=== PATIENT | female | born 1960 | race Caucasian/White ===

== ENCOUNTER 2018-07-19 13:28 | Observation (INO) | payer MEDICARE, OTHER ==
[~2018-07-19] VITALS: Ht 165.1 cm; Wt 77.1 kg
[2018-07-19 13:57] LABS: BASOPHILS ABSOLUTE AUTO 0.08 K/mm3 (0.00-0.23); BASOPHILS PERCENT AUTO 1 % (0-2); EOSINOPHILS ABSOLUTE AUTO 0.04 K/mm3 (0.00-0.68); EOSINOPHILS PERCENT AUTO 0 % (0-6); Hematocrit 38.8 % (33.0-51.0); Hemoglobin 13.1 g/dL (11.5-16.0); IMMATURE GRAN ABSOLUTE AUTO 0.03 K/mm3 (0.00-0.10); IMMATURE GRAN PERCENT AUTO 0 % (0-1); LYMPHOCYTES ABSOLUTE AUTO 1.69 K/mm3 (0.84-5.20); LYMPHOCYTES PERCENT AUTO 13 % (21-46); MONOCYTES ABSOLUTE AUTO 0.81 K/mm3 (0.16-1.47); MONOCYTES PERCENT AUTO 6 % (4-13); Mean Corpuscular HGB 33.8 pg (26.0-34.0); Mean Corpuscular HGB Conc 33.8 g/dL (31.5-36.5); Mean Corpuscular Volume 100 fL (80-100); Mean Platelet Volume 9.3 fL (9.1-12.4); NEUTROPHILS PERCENT AUTO 80 % (41-73); Platelet Count 335 K/mm3 (150-400); RDW Coefficient Variation 12.8 % (11.7-14.2); RDW Standard Deviation 47.3 fL (35.1-46.3); Red Blood Cell Count 3.88 M/mm3 (3.80-5.20); White Blood Cell Count 13.35 K/mm3 (4.00-11.30)
[2018-07-19 14:19] LABS: Alanine Aminotransfer (ALT/SGP 37 U/L (12-78); Alk Phos 91 U/L (50-136); Anion Gap 12 mmol/L (6-16); Aspartate Aminotrans (AST/SGOT 37 U/L (12-37); Bilirubin, Total 0.7 mg/dL (0.1-1.0); Blood Urea Nitrogen 13 mg/dL (8-24); Bun/Creatinine Ratio 19.1 (12.0-20.0); CO2, Blood 26 mmol/L (21-32); Calcium, Blood 9.5 mg/dL (8.5-10.1); Chloride, Blood 101 mmol/L (98-108); Creatinine, Blood 0.68 mg/dL (0.40-1.00); Globulin, Blood 3.9 g/dL (2.2-4.0); Glomerular Filtration Rate >60 (60-); Glucose, Blood 125 mg/dL (70-99); Potassium, Blood 3.1 mmol/L (3.5-5.5); Sodium, Blood 139 mmol/L (136-145); Total Protein, Blood 7.9 g/dL (6.4-8.2)
[2018-07-19] MEDS ORDERED: ATOR10 PO (16:07)
[2018-07-19] MEDS ORDERED: BENZ100A PO (16:08)
[2018-07-19] MEDS ORDERED: BUDE6HFA INH (16:08)
[2018-07-19] MEDS ORDERED: CALCA400CH PO (16:08)
[2018-07-19] MEDS ORDERED: LISI5 PO (16:09)
[2018-07-19] MEDS ORDERED: NAPR220 PO (16:09)
[2018-07-19] MEDS ORDERED: TIOT18 INH (16:10)
[2018-07-19] MEDS ORDERED: PRAZ2 PO (16:10)
[2018-07-19] MEDS ORDERED: LEVSOD100 PO (21:42)
[2018-07-19] MEDS ORDERED: ATOR40TA PO (21:43)
[2018-07-19] MEDS ORDERED: DULO60 PO (21:43)
[2018-07-20] MEDS ORDERED: HYDR1TAB94 PO (12:56)
== END 2018-07-20 13:51 | disposition home or self-care (01) ==
LOC: ER 13:28 → SURS 13:29 → ER 17:13 → SURS 17:13
PROVIDERS: Emergency Medicine; Surgery
PROC: 0DTJ4ZZ Resection of Appendix, Percutaneous Endoscopic Approach (ICD-10-PCS; principal; 2018-07-19 18:00)
DX: K35.80 Unspecified acute appendicitis (principal); Z88.1 Allergy status to other antibiotic agents
CPT/HCPCS: 74177; 80053; 83690; 85025; 96361; 96365; 96375; 96376; 99285-25; G0378; J0295; J1100; J1170; J1885; J2250; J2370; J2405; J2710; J3010; J7030; J7120; Q9967

== ENCOUNTER 2018-08-10 08:47 | Emergency (ER) | payer MEDICARE, OTHER ==
[~2018-08-10 08:47] MED LIST: ATOR10 PO; ATOR40TA PO; BENZ100A PO; BUDE6HFA INH; CALCA400CH PO; DULO60 PO; HYDR1TAB94 PO; LEVSOD100 PO; LISI5 PO; NAPR220 PO; PRAZ2 PO; TIOT18 INH
== END 2018-08-10 10:13 | disposition left against medical advice (07) ==
LOC: ER 08:47
DX: Z53.21 Procedure and treatment not carried out due to patient leaving prior to being seen by health care provider (principal)

== ENCOUNTER 2018-08-13 08:41 | Emergency (ER) | payer MEDICARE, OTHER ==
[~2018-08-13] VITALS: Ht 167.6 cm; Wt 77.1 kg
[2018-08-13 10:28] LABS: BASOPHILS ABSOLUTE AUTO 0.06 K/mm3 (0.00-0.23); BASOPHILS PERCENT AUTO 1 % (0-2); EOSINOPHILS ABSOLUTE AUTO 0.01 K/mm3 (0.00-0.68); EOSINOPHILS PERCENT AUTO 0 % (0-6); Hematocrit 38.4 % (33.0-51.0); Hemoglobin 12.6 g/dL (11.5-16.0); IMMATURE GRAN ABSOLUTE AUTO 0.05 K/mm3 (0.00-0.10); IMMATURE GRAN PERCENT AUTO 0 % (0-1); LYMPHOCYTES ABSOLUTE AUTO 1.05 K/mm3 (0.84-5.20); LYMPHOCYTES PERCENT AUTO 8 % (21-46); MONOCYTES ABSOLUTE AUTO 0.36 K/mm3 (0.16-1.47); MONOCYTES PERCENT AUTO 3 % (4-13); Mean Corpuscular HGB 32.6 pg (26.0-34.0); Mean Corpuscular HGB Conc 32.8 g/dL (31.5-36.5); Mean Corpuscular Volume 99 fL (80-100); Mean Platelet Volume 9.7 fL (9.1-12.4); NEUTROPHILS ABSOLUTE AUTO 11.35 K/mm3 (1.96-9.15); NEUTROPHILS PERCENT AUTO 88 % (41-73); Platelet Count 350 K/mm3 (150-400); RDW Coefficient Variation 12.7 % (11.7-14.2); RDW Standard Deviation 45.9 fL (35.1-46.3); Red Blood Cell Count 3.87 M/mm3 (3.80-5.20); White Blood Cell Count 12.88 K/mm3 (4.00-11.30)
[2018-08-13 10:39] LABS: C-REACTIVE PROTEIN, EXT RANGE <0.290 mg/dL (0.000-0.300)
[2018-08-13 10:42] LABS: Alanine Aminotransfer (ALT/SGP 33 U/L (12-78); Albumin, Blood 3.8 g/dL (3.4-5.0); Albumin/Globulin Ratio 0.9 (0.8-1.8); Alk Phos 95 U/L (50-136); Anion Gap 6 mmol/L (6-16); Aspartate Aminotrans (AST/SGOT 19 U/L (12-37); Bilirubin, Total 0.9 mg/dL (0.1-1.0); Blood Urea Nitrogen 14 mg/dL (8-24); Bun/Creatinine Ratio 22.3 (12.0-20.0); CO2, Blood 27 mmol/L (21-32); Calcium, Blood 9.1 mg/dL (8.5-10.1); Chloride, Blood 105 mmol/L (98-108); Creatinine, Blood 0.63 mg/dL (0.40-1.00); Globulin, Blood 4.1 g/dL (2.2-4.0); Glomerular Filtration Rate >60 (60-); Glucose, Blood 108 mg/dL (70-99); Potassium, Blood 3.8 mmol/L (3.5-5.5); Sodium, Blood 138 mmol/L (136-145); Total Protein, Blood 7.9 g/dL (6.4-8.2); Troponin I <0.015 ng/mL (0.000-0.040)
[2018-08-13] MEDS ORDERED: Percocet 5-3251 EACH PO (11:15)
[2018-08-13] MEDS ORDERED: Prednisone20 MG PO (11:15)
== END 2018-08-13 11:33 | disposition home or self-care (01) ==
LOC: ER 08:41
PROVIDERS: Internal Medicine
DX: M18.9 Osteoarthritis of first carpometacarpal joint, unspecified (principal); Z88.2 Allergy status to sulfonamides; Z88.1 Allergy status to other antibiotic agents; Z79.899 Other long term (current) drug therapy; E78.5 Hyperlipidemia, unspecified; Z87.891 Personal history of nicotine dependence
CPT/HCPCS: 29125; 36415; 80053; 84484; 85025; 85379; 85651; 86140; 93005; 93010; 96374; 96375; 99283-25; J1885; J2405; J3010; L3917

== ENCOUNTER 2019-01-26 08:35 | Day surgery (SDC) | payer MEDICARE, OTHER ==
[~2019-01-26] VITALS: Ht 167.6 cm; Wt 82.2 kg
[~2019-01-26 08:35] MED LIST changes: +COQ1050 MG PO; +Percocet 5-3251 EACH PO; +Prednisone20 MG PO; +VITAMIN D-32000 UNIT PO; +Vitamin B Comple1 EA PO
--- NOTE | 2019-01-26 09:18 | NUR ---
History, Chart, Medications and Allergies reviewed before start of procedure. Lungs clear T/O to Auscultation. Patient confirms NPO status and agrees with scheduled surgery. Patient reports completing Chlorhexadine shower X2 prior to admission to hospital.
--- NOTE | 2019-01-26 13:22 | NUR ---
RECEIVED REPORT FROM DR HULL. PT IS AWAKE AND COUGHING. SAT PT UP. VSS. ABD X3 SX SITES CDI. PT TURNED ON SIDE AND STARTED CRYING. RN GAVE PT TISSUES. PT SOMEWHAT STILL SLEEPY WAKING UP. WILL GIVE PT TIME TO WAKE.
--- NOTE | 2019-01-26 13:31 | NUR ---
PT STATES SHE DOES NOT KNOW WHY SHE IS CRYING. PT TURNED ONTO BACK. WARM BLANKETS PLACED. RN SPOKE TO PT ABOUT HOW PROCEDURE WENT. PT AWARE, LOOKS SAD "I DONT KNOW WHY" STATES PT. VSS. PT WANTS TO JUST REST. DID NOT WANT ANY PAIN MEDS AT THIS TIME FOR SORE ABD.
--- NOTE | 2019-01-26 13:53 | NUR ---
PT CRYING WHEN BROUGHT TO STEP. SHE STATED THAT DHE HAS NO IDEA WHY SHE IS CRYING. PROVIDED EMOTIONAL SUPPORT. PT TALKING ABOUT LOSING HER AND HER DAUGHTER BEING IN COLLEGE IN [facility]. INCISIONS X3 REMAIN CDI WITH VERENICE FALL IN PLACE.
--- NOTE | 2019-01-26 14:51 | NUR ---
PT INCISIONS REMAINED INTACT WITH STERI STRIPS IN PLACE AND NO BLEEDING. PT TEARS HAVE STOPPED, CHEERFUL, Patient up to Ambulate independently. Gait steady. Patient States Post-Procedure ride home has been arranged. Discharge instructions reviewed with patient. Patient verbalizes understanding. Copy given to patient to take home. Discharged via wheelchair to private car for ride home. ALL BELONINGS RETURNED TO PATIENT.
== END 2019-01-26 23:18 | disposition home or self-care (01) ==
LOC: ORSCMMR 08:35 → ORD 11:45 → ORSCMMR 23:18
PROVIDERS: Surgery
PROC: 8E0W4CZ Robotic Assisted Procedure of Trunk Region, Percutaneous Endoscopic Approach (ICD-10-PCS; principal; 2019-01-26 11:45)
PROC: 0WUF4JZ Supplement Abdominal Wall with Synthetic Substitute, Percutaneous Endoscopic Approach (ICD-10-PCS; principal; 2019-01-26 11:45)
DX: K43.2 Incisional hernia without obstruction or gangrene (principal); E78.00 Pure hypercholesterolemia, unspecified; F32.9 Major depressive disorder, single episode, unspecified; Z79.899 Other long term (current) drug therapy
CPT/HCPCS: 49654; S2900; A9270-GY; C1781; J0690; J1100; J1885; J2250; J2405; J2704; J3010; J7120

== ENCOUNTER 2019-05-07 07:50 | Emergency (ER) | payer MEDICARE, OTHER ==
[~2019-05-07] VITALS: Ht 167.6 cm; Wt 77.1 kg
[2019-05-07 08:17] LABS: Source, Urine Clean Catch
[2019-05-07 08:23] LABS: Bilirubin, Urine Neg (Neg); Blood, Urine 2+ (Neg); Glucose Qualitative, Urine Neg (Neg); Ketones, Urine Neg (Neg); Leukocyte Esterase, Urine Neg (Neg); Nitrite, Urine Neg (Neg); Protein, Urine Neg (Neg); Urobilinogen, Urine NORM (Normal)
[2019-05-07 08:36] LABS: Appearance, Urine Clear (Clear); Color, Urine Yellow (P-Yellow); Red Blood Cells, Urine 0-2 /hpf (0-2); Squamous Epithelial Cells Few /hpf (Few); White Blood Cells, Urine 0-2 /hpf (0-5)
[2019-05-07 08:37] LABS: Bacteria Mod /hpf; Yeast/Fungi Urine Few /hpf
[2019-05-07 09:46] LABS: BASOPHILS ABSOLUTE AUTO 0.05 K/mm3 (0.00-0.23); BASOPHILS PERCENT AUTO 1 % (0-2); EOSINOPHILS ABSOLUTE AUTO 0.03 K/mm3 (0.00-0.68); EOSINOPHILS PERCENT AUTO 0 % (0-6); Hematocrit 37.8 % (33.0-51.0); Hemoglobin 12.7 g/dL (11.5-16.0); IMMATURE GRAN ABSOLUTE AUTO 0.02 K/mm3 (0.00-0.10); IMMATURE GRAN PERCENT AUTO 0 % (0-1); LYMPHOCYTES PERCENT AUTO 16 % (21-46); MONOCYTES PERCENT AUTO 7 % (4-13); Mean Corpuscular HGB 33.2 pg (26.0-34.0); Mean Corpuscular HGB Conc 33.6 g/dL (31.5-36.5); Mean Corpuscular Volume 99 fL (80-100); Mean Platelet Volume 9.4 fL (9.1-12.4); NEUTROPHILS ABSOLUTE AUTO 6.81 K/mm3 (1.96-9.15); NEUTROPHILS PERCENT AUTO 77 % (41-73); Platelet Count 280 K/mm3 (150-400); RDW Coefficient Variation 13.2 % (11.7-14.2); RDW Standard Deviation 47.6 fL (35.1-46.3); Red Blood Cell Count 3.83 M/mm3 (3.80-5.20); White Blood Cell Count 8.91 K/mm3 (4.00-11.30)
[2019-05-07 10:07] LABS: Alanine Aminotransfer (ALT/SGP 35 U/L (12-78); Albumin, Blood 3.8 g/dL (3.4-5.0); Alk Phos 84 U/L (50-136); Anion Gap 6 mmol/L (6-16); Aspartate Aminotrans (AST/SGOT 27 U/L (12-37); Bilirubin, Total 1.1 mg/dL (0.1-1.0); Blood Urea Nitrogen 13 mg/dL (8-24); Bun/Creatinine Ratio 20.6 (12.0-20.0); CO2, Blood 27 mmol/L (21-32); Chloride, Blood 106 mmol/L (98-108); Creatinine, Blood 0.63 mg/dL (0.40-1.00); Globulin, Blood 3.8 g/dL (2.2-4.0); Glomerular Filtration Rate >60 (60-); Glucose, Blood 106 mg/dL (70-99); Potassium, Blood 3.7 mmol/L (3.5-5.5); Sodium, Blood 139 mmol/L (136-145); Total Protein, Blood 7.6 g/dL (6.4-8.2)
[2019-05-07] MEDS ORDERED: Norco 5-325 Ta1 EACH PO (11:15)
[2019-05-07] MEDS ORDERED: Robaxin-750750 MG PO (11:15)
== END 2019-05-07 11:27 | disposition home or self-care (01) ==
LOC: ER 07:50
PROVIDERS: Emergency Medicine; Physician Assistant
DX: M54.40 Lumbago with sciatica, unspecified side (principal); Z87.891 Personal history of nicotine dependence; Z88.2 Allergy status to sulfonamides; Z88.1 Allergy status to other antibiotic agents; Z79.899 Other long term (current) drug therapy
CPT/HCPCS: 36415; 74176; 80053; 81001; 83690; 85025; 96374; 99284-25; A9270-GY; J1885

== ENCOUNTER → 2021-06-24 | Outpatient (CLI) | payer MEDICARE, OTHER ==
[~2021-06-24] MED LIST changes: +Norco 5-325 Ta1 EACH PO; +Robaxin-750750 MG PO
[2021-06-26 03:09] LABS: CHLAMYDIA TRACHOMATIS, NAA Negative (Negative)
[2021-06-29 19:10] LABS: HSV-2 IGG SUPPLEMENTAL TEST Positive (Negative)
== END ==
LOC: LAB SHORT 12:15
PROVIDERS: Family Medicine
DX: L98.9 Disorder of the skin and subcutaneous tissue, unspecified (principal); E89.0 Postprocedural hypothyroidism; Z88.2 Allergy status to sulfonamides; Z88.1 Allergy status to other antibiotic agents
CPT/HCPCS: 84443; 86592; 86695; 86696; 87491; 87591

== ENCOUNTER → 2021-07-17 | Outpatient (CLI) | payer MEDICARE, OTHER | LOC: LAB SHORT 16:48 → LAB 16:48 | DX: L57.0 Actinic keratosis (principal); L02.02 Furuncle of face; L08.9 Local infection of the skin and subcutaneous tissue, unspecified; L57.8 Other skin changes due to chronic exposure to nonionizing radiation; L81.4 Other melanin hyperpigmentation; R21 Rash and other nonspecific skin eruption; Z71.89 Other specified counseling | CPT/HCPCS: 87070; 87077; 87186; 87205 ==

== ENCOUNTER → 2023-01-13 | Outpatient (CLI) | payer MEDICARE, OTHER | END | disposition home or self-care (01) | LOC: LAB 10:25 → LAB SHORT 10:25 | DX: E89.0 Postprocedural hypothyroidism (principal) | CPT/HCPCS: 84443 ==

== ENCOUNTER 2023-09-15 11:54 | Emergency (ER) | payer MEDICARE, OTHER ==
[~2023-09-15] VITALS: Ht 170.2 cm; Wt 68.0 kg
[2023-09-15 12:21] LABS: BASOPHILS ABSOLUTE AUTO 0.08 K/mm3 (0.00-0.23); BASOPHILS PERCENT AUTO 1 % (0-2); EOSINOPHILS ABSOLUTE AUTO 0.12 K/mm3 (0.00-0.68); EOSINOPHILS PERCENT AUTO 2 % (0-6); Hematocrit 38.3 % (33.0-51.0); IMMATURE GRAN ABSOLUTE AUTO 0.01 K/mm3 (0.00-0.10); IMMATURE GRAN PERCENT AUTO 0 % (0-1); LYMPHOCYTES PERCENT AUTO 30 % (21-46); MONOCYTES ABSOLUTE AUTO 0.46 K/mm3 (0.16-1.47); MONOCYTES PERCENT AUTO 7 % (4-13); Mean Corpuscular HGB 31.1 pg (26.0-34.0); Mean Corpuscular HGB Conc 33.9 g/dL (31.5-36.5); Mean Corpuscular Volume 92 fL (80-100); Mean Platelet Volume 9.1 fL (9.1-12.4); NEUTROPHILS ABSOLUTE AUTO 4.31 K/mm3 (1.96-9.15); NEUTROPHILS PERCENT AUTO 61 % (41-73); Platelet Count 301 K/mm3 (150-400); RDW Coefficient Variation 12.3 % (11.7-14.2); RDW Standard Deviation 40.9 fL (35.1-46.3); Red Blood Cell Count 4.18 M/mm3 (3.80-5.20); White Blood Cell Count 7.08 K/mm3 (4.00-11.30)
[2023-09-15 12:44] LABS: Albumin, Blood 3.8 g/dL (3.4-5.0); Albumin/Globulin Ratio 1.1 (0.8-1.8); Bilirubin, Total 0.7 mg/dL (0.1-1.0); Calcium, Blood 8.9 mg/dL (8.5-10.1); Creatinine, Blood 0.77 mg/dL (0.40-1.00); Globulin, Blood 3.6 g/dL (2.2-4.0); Total Protein, Blood 7.4 g/dL (6.4-8.2)
[2023-09-15 14:58] LABS: Source, Urine Clean Catch
[2023-09-15 15:09] LABS: Appearance, Urine Clear (Clear); Bilirubin, Urine Neg (Neg); Blood, Urine Neg (Neg); Color, Urine Yellow (P-Yellow); Glucose Qualitative, Urine Neg (Neg); Ketones, Urine Neg (Neg); Leukocyte Esterase, Urine Neg (Neg); Nitrite, Urine Neg (Neg); Protein, Urine Neg (Neg); Specific Gravity, Urine 1.005 (1.003-1.022); Urobilinogen, Urine NORM (Normal)
[2023-09-15 15:45] VITALS: BP 122/84
== END 2023-09-15 15:46 | disposition home or self-care (01) ==
LOC: ER 11:54
PROVIDERS: Emergency Medicine; Physician Assistant
DX: R19.5 Other fecal abnormalities (principal); R10.11 Right upper quadrant pain; M06.9 Rheumatoid arthritis, unspecified; Z79.899 Other long term (current) drug therapy; Z88.2 Allergy status to sulfonamides; Z88.1 Allergy status to other antibiotic agents
CPT/HCPCS: 76705; 80053; 81003; 85025; 99284-25

== ENCOUNTER → 2023-11-10 | Outpatient (CLI) | payer MEDICARE, OTHER ==
[2023-11-16 15:46] LABS: HPV HIGH RISK BY TMA Detected; HPV SOURCE Cervical
[2023-11-17 22:07] LABS: HPV GENOTYPE 16 BY TMA Not Detected; HPV GENOTYPE 18/45 BY TMA Not Detected; HPVG SOURCE Cervical
== END | disposition home or self-care (01) ==
LOC: LAB SHORT 11:38 → LAB 11:38
PROVIDERS: Registered Nurse Community Health
DX: Z12.4 Encounter for screening for malignant neoplasm of cervix (principal)
CPT/HCPCS: 87624; 87625; G0123

== ENCOUNTER → 2024-05-17 | Outpatient (CLI) | payer MEDICARE, OTHER ==
[~2024-05-17] MED LIST changes: +Nitrostat0.3 MG SL
== END ==
LOC: LAB 12:43 → LAB SHORT 12:43
DX: N39.41 Urge incontinence (principal)
CPT/HCPCS: 87086

== ENCOUNTER 2024-05-31 06:46 | Day surgery (SDC) | payer MEDICARE, OTHER ==
[~2024-05-31] VITALS: Ht 170.2 cm; Wt 70.5 kg
[2024-05-31] MEDS ORDERED: ACYC200 PO (07:08)
[2024-05-31] MEDS ORDERED: propofoL 50 ML IV ONE (07:23)
[2024-05-31] MEDS ORDERED: Lactated Ringer's 1,000 ML IV ONE ×2 (07:23→07:58)
[2024-05-31 09:18] VITALS: BP 101/54
== END 2024-05-31 09:24 | disposition home or self-care (01) ==
LOC: ORSCSDS 06:46
PROVIDERS: Specialist
PROC: 0D758ZZ Dilation of Esophagus, Via Natural or Artificial Opening Endoscopic (ICD-10-PCS; principal; 2024-05-31 08:00)
PROC: 0DB98ZX Excision of Duodenum, Via Natural or Artificial Opening Endoscopic, Diagnostic (ICD-10-PCS; principal; 2024-05-31 08:00)
PROC: 0DB68ZX Excision of Stomach, Via Natural or Artificial Opening Endoscopic, Diagnostic (ICD-10-PCS; principal; 2024-05-31 08:00)
PROC: 0DB58ZX Excision of Esophagus, Via Natural or Artificial Opening Endoscopic, Diagnostic (ICD-10-PCS; principal; 2024-05-31 08:00)
PROC: 0DJD8ZZ Inspection of Lower Intestinal Tract, Via Natural or Artificial Opening Endoscopic (ICD-10-PCS; principal; 2024-05-31 08:00)
DX: R19.4 Change in bowel habit (principal); K62.89 Other specified diseases of anus and rectum; K57.30 Diverticulosis of large intestine without perforation or abscess without bleeding; Z80.0 Family history of malignant neoplasm of digestive organs; R13.19 Other dysphagia; R11.0 Nausea; R14.0 Abdominal distension (gaseous); R63.4 Abnormal weight loss; Z86.0101 Personal history of adenomatous and serrated colon polyps; Z86.0102 Personal history of hyperplastic colon polyps; Z85.850 Personal history of malignant neoplasm of thyroid; Z79.899 Other long term (current) drug therapy
CPT/HCPCS: 88305; 88342; C1769; J2704; J7120

== ENCOUNTER → 2024-07-28 | Outpatient (CLI) | payer MEDICARE, OTHER ==
[~2024-07-28] MED LIST changes: +ACYC200 PO
[2024-07-28 12:08] LABS: BASOPHILS ABSOLUTE AUTO 0.06 K/mm3 (0.00-0.23); BASOPHILS PERCENT AUTO 1 % (0-2); EOSINOPHILS ABSOLUTE AUTO 0.04 K/mm3 (0.00-0.68); EOSINOPHILS PERCENT AUTO 1 % (0-6); Hematocrit 37.6 % (33.0-51.0); Hemoglobin 12.8 g/dL (11.5-16.0); IMMATURE GRAN ABSOLUTE AUTO 0.01 K/mm3 (0.00-0.10); IMMATURE GRAN PERCENT AUTO 0 % (0-1); LYMPHOCYTES ABSOLUTE AUTO 1.53 K/mm3 (0.84-5.20); LYMPHOCYTES PERCENT AUTO 21 % (21-46); MONOCYTES ABSOLUTE AUTO 0.43 K/mm3 (0.16-1.47); MONOCYTES PERCENT AUTO 6 % (4-13); Mean Corpuscular HGB 32.3 pg (26.0-34.0); Mean Corpuscular Volume 95 fL (80-100); Mean Platelet Volume 8.8 fL (9.1-12.4); NEUTROPHILS ABSOLUTE AUTO 5.28 K/mm3 (1.96-9.15); NEUTROPHILS PERCENT AUTO 72 % (41-73); Platelet Count 297 K/mm3 (150-400); RDW Coefficient Variation 12.7 % (11.7-14.2); RDW Standard Deviation 44.3 fL (35.1-46.3); Red Blood Cell Count 3.96 M/mm3 (3.80-5.20); White Blood Cell Count 7.35 K/mm3 (4.00-11.30)
[2024-07-28 12:15] LABS: Bun/Creatinine Ratio 14.5 (12.0-20.0); Creatinine, Blood 0.76 mg/dL (0.40-1.00); Potassium, Blood 3.8 mmol/L (3.5-5.5)
== END ==
LOC: LAB SHORT 12:05 → LAB 12:05
PROVIDERS: Physician Assistant
DX: L08.9 Local infection of the skin and subcutaneous tissue, unspecified (principal); B95.8 Unspecified staphylococcus as the cause of diseases classified elsewhere
CPT/HCPCS: 80048; 85025

== ENCOUNTER 2024-08-24 09:26 | Observation (INO) | payer MEDICARE, OTHER ==
[~2024-08-24] VITALS: Ht 170.2 cm; Wt 70.3 kg
[2024-08-24 11:26] LABS: BASOPHILS ABSOLUTE AUTO 0.09 K/mm3 (0.00-0.23); BASOPHILS PERCENT AUTO 1 % (0-2); EOSINOPHILS ABSOLUTE AUTO 0.07 K/mm3 (0.00-0.68); EOSINOPHILS PERCENT AUTO 1 % (0-6); Hematocrit 38.3 % (33.0-51.0); Hemoglobin 13.2 g/dL (11.5-16.0); IMMATURE GRAN ABSOLUTE AUTO 0.01 K/mm3 (0.00-0.10); IMMATURE GRAN PERCENT AUTO 0 % (0-1); LYMPHOCYTES ABSOLUTE AUTO 2.11 K/mm3 (0.84-5.20); LYMPHOCYTES PERCENT AUTO 26 % (21-46); MONOCYTES PERCENT AUTO 7 % (4-13); Mean Corpuscular HGB 32.5 pg (26.0-34.0); Mean Corpuscular HGB Conc 34.5 g/dL (31.5-36.5); Mean Corpuscular Volume 94 fL (80-100); Mean Platelet Volume 8.9 fL (9.1-12.4); NEUTROPHILS ABSOLUTE AUTO 5.28 K/mm3 (1.96-9.15); NEUTROPHILS PERCENT AUTO 65 % (41-73); Platelet Count 303 K/mm3 (150-400); RDW Coefficient Variation 12.4 % (11.7-14.2); RDW Standard Deviation 43.1 fL (35.1-46.3); Red Blood Cell Count 4.06 M/mm3 (3.80-5.20); White Blood Cell Count 8.16 K/mm3 (4.00-11.30)
[2024-08-24 12:01] VITALS: BP 122/81
[2024-08-24 12:07] LABS: Albumin, Blood 4.1 g/dL (3.4-5.0); Albumin/Globulin Ratio 1.1 (0.8-1.8); Bilirubin, Total 0.7 mg/dL (0.1-1.0); Bun/Creatinine Ratio 16.2 (12.0-20.0); Calcium, Blood 9.4 mg/dL (8.5-10.1); Creatinine, Blood 0.56 mg/dL (0.40-1.00); Globulin, Blood 3.8 g/dL (2.2-4.0); Potassium, Blood 4.5 mmol/L (3.5-5.5); Total Protein, Blood 7.9 g/dL (6.4-8.2)
[2024-08-24] MEDS ORDERED: DiphenhydrAMINE HCl 50 MG/ML 1ML Vial IV ONE (12:40)
[2024-08-24] MEDS ORDERED: Ketorolac Tromethamine 30mg Vial IV ONE (12:40)
[2024-08-24] MEDS ORDERED: Prochlorperazine Edisylate 10 mg Vial IV ONE (12:40)
[2024-08-24] MEDS ORDERED: Aspirin 325 MG Tab PO ONE (12:55)
[2024-08-24] MEDS ORDERED: FLU VACC TS2024-25(6MOS UP)/PF 45 MCG/0.5 ML SYRINGE IM SCH (14:20)
[2024-08-24] MEDS ORDERED: Clopidogrel Bisulfate 75 MG Tab PO SCH (15:00)
[2024-08-24] MEDS ORDERED: Atorvastatin 40 MG Tab PO SCH (15:00)
[2024-08-25] MEDS ORDERED: Aspirin 81 MG Chew PO SCH (09:00)
== END 2024-08-24 15:55 | disposition left against medical advice (07) ==
LOC: ER 09:26 → ERHOLD 09:27
PROVIDERS: Student in an Organized Health Care Education/Training Program; ADMIT Internal Medicine
DX: R53.1 Weakness (principal); R42 Dizziness and giddiness; E89.0 Postprocedural hypothyroidism; G89.29 Other chronic pain; M06.9 Rheumatoid arthritis, unspecified; Z66 Do not resuscitate; Z88.0 Allergy status to penicillin; Z88.1 Allergy status to other antibiotic agents; Z88.2 Allergy status to sulfonamides; Z90.49 Acquired absence of other specified parts of digestive tract; Z53.29 Procedure and treatment not carried out because of patient's decision for other reasons
CPT/HCPCS: 80053; 84443; 84484; 85025; 93005; 93010; 96374; 99285-25; A9270; G0378; J0780; J1200; J1885

== ENCOUNTER → 2024-10-22 | Outpatient (CLI) | payer MEDICARE, OTHER | END | disposition home or self-care (01) | LOC: LAB 12:59 → LAB SHORT 12:59 | DX: L08.9 Local infection of the skin and subcutaneous tissue, unspecified (principal); S01.401A Unspecified open wound of right cheek and temporomandibular area, initial encounter; S01.402A Unspecified open wound of left cheek and temporomandibular area, initial encounter; S01.80XA Unspecified open wound of other part of head, initial encounter | CPT/HCPCS: 87070; 87205 ==

== ENCOUNTER → 2024-12-31 | Outpatient (CLI) | payer MEDICARE, OTHER ==
[2024-12-31 18:50] LABS: C-REACTIVE PROTEIN, EXT RANGE <0.290 mg/dL (0.000-0.300)
[2025-01-01 18:17] LABS: COMPLEMENT COMPONENT 3 141 mg/dL (90-180); COMPLEMENT COMPONENT 4 30 mg/dL (10-40)
[2025-01-01 20:54] LABS: ANTI-NUCLEAR AB ANA,IGG ELISA None Detected (None Detected)
[2025-01-01 21:30] LABS: CYCLIC CITRULLINATED PEP,IGG/A 6 Units (0-19)
[2025-01-05 01:51] LABS: SSA-52 (RO52) (ENA) AB, IGG 2 AU/mL (0-40); SSA-60 (RO60) (ENA) AB, IGG 0 AU/mL (0-40); SSB (LA) (ENA) ANTIBODY, IGG 0 AU/mL (0-40)
== END ==
LOC: LAB SHORT 17:37 → LAB 17:37
PROVIDERS: Family Medicine
DX: M13.0 Polyarthritis, unspecified (principal); R21 Rash and other nonspecific skin eruption; R82.998 Other abnormal findings in urine; E03.9 Hypothyroidism, unspecified
CPT/HCPCS: 81015; 82550; 84443; 85651; 86038; 86140; 86160; 86200; 86235